=== PATIENT | female | born 1935 | race Two or more races ===

== ENCOUNTER 2017-06-12 10:18 | Inpatient (IN) | payer MEDICARE, OTHER ==
[~2017-06-12] VITALS: Ht 162.6 cm; Wt 68.0 kg
--- NOTE | 2017-06-12 10:27 | Emergency Room Report ---
History of Present Illness General Chief Complaint: Generalized Weakness Source: Patient Present Illness HPI Patient is a 83-year-old female who presented after increased generalized weakness. Patient gradual onset of symptoms. This reports having had decreased appetite. The patient states that she feels weak all over. She reports having some skin lesion to her left foot. Patient states she been off her medications for several weeks. She denies any fever. She denies focal weakness. The patient states that she has not had any recent trauma Allergies: Coded Allergies: No Known Allergies (Unverified , 06/12/17) Patient History Past Medical History: see triage record Reviewed Nursing Documentation: PMH: Agreed, PSxH: Agreed Review of Systems All Other Systems: limited - by poor historian Physical Exam Vital Signs Date Time Temp Pulse Resp B/P (MAP) Pulse Ox O2 Delivery O2 Flow Rate FiO2 06/12/17 10:11 98.2 92 18 134/86 98 Room Air Sp02 EP Interpretation: reviewed, normal General Appearance: normal inspection, well appearing, no apparent distress, alert, Chronically Ill Head: atraumatic ENT: normal ENT inspection, hearing grossly normal, normal voice Neck: normal inspection, full range of motion, supple, no bony tend Respiratory: normal inspection, lungs clear, normal breath sounds, no respiratory distress, no retraction, no wheezing Cardiovascular #1: regular rate, rhythm, no edema Gastrointestinal: normal inspection, normal bowel sounds, non tender, soft, no guarding, no hernia Genitourinary: no CVA tenderness Musculoskeletal: normal inspection, back normal, normal range of motion Neurologic: normal inspection, alert, oriented x3, responsive, teacher learning disabled III-XII nml as tested, speech normal Psychiatric: normal inspection, judgement/insight normal, mood/affect normal Skin: normal inspection, normal color, no rash Medical Decision Making Diagnostic Impression: Primary Impression: Generalized weakness Additional Impression: UTI (urinary tract infection) ER Course Patient presented for generalized weakness. Differential diagnosis included was not limited to anemia, urinary tract infection, electrolyte abnormality, hypothyroidism, myocardial infarction, myasthenia gravis, dehydration, among others. Because of complexity of patient's case laboratory testing and imaging studies were ordered.The patient started on IV fluids as well as IV antibiotic. Dr. Ellyn Lockhart was contacted for inpatient management Labs Test 06/12/17 10:55 06/12/17 11:00 06/12/17 13:55 White Blood Count 6.2 K/UL (4.8-10.8) Red Blood Count 4.56 M/UL (4.20-5.40) Hemoglobin 12.2 G/DL (12.0-16.0) Hematocrit 40.2 % (37.0-47.0) Mean Corpuscular Volume 88 FL (80-99) Mean Corpuscular Hemoglobin 26.8 PG (27.0-31.0) Mean Corpuscular Hemoglobin Concent 30.3 G/DL (32.0-36.0) Red Cell Distribution Width 12.2 % (11.6-14.8) Platelet Count 239 K/UL (150-450) Mean Platelet Volume 6.1 FL (6.5-10.1) Neutrophils (%) (Auto) 59.6 % (45.0-75.0) Lymphocytes (%) (Auto) 25.1 % (20.0-45.0) Monocytes (%) (Auto) 13.9 % (1.0-10.0) Eosinophils (%) (Auto) 0.4 % (0.0-3.0) Basophils (%) (Auto) 0.9 % (0.0-2.0) Prothrombin Time 11.2 SEC (9.30-11.50) Prothromb Time International Ratio 1.1 (0.9-1.1) Activated Partial Thromboplast Time 27 SEC (23-33) Sodium Level 143 MMOL/L (136-145) Potassium Level 4.4 MMOL/L (3.5-5.1) Chloride Level 103 MMOL/L (98-107) Carbon Dioxide Level 31 MMOL/L (21-32) Anion Gap 10 mmol/L (5-15) Blood Urea Nitrogen 15 mg/dL (7-18) Creatinine 0.7 MG/DL (0.55-1.30) Estimat Glomerular Filtration Rate mL/min (>60) Glucose Level 101 MG/DL (74-106) Calcium Level 9.8 MG/DL (8.5-10.1) Phosphorus Level 2.2 MG/DL (2.5-4.9) Magnesium Level 1.3 MG/DL (1.8-2.4) Total Bilirubin 0.7 MG/DL (0.2-1.0) Aspartate Amino Transf (AST/SGOT) 18 U/L (15-37) Alanine Aminotransferase (ALT/SGPT) 17 U/L (12-78) Alkaline Phosphatase 82 U/L (46-116) Total Creatine Kinase 60 U/L (26-308) Creatine Kinase MB 1.9 NG/ML (0.0-3.6) Creatine Kinase MB Relative Index 3.1 Troponin I 0.034 ng/mL (0.000-0.056) Pro-B-Type Natriuretic Peptide 252 pg/mL (0-125) Total Protein 7.7 G/DL (6.4-8.2) Albumin 3.6 G/DL (3.4-5.0) Globulin 4.1 g/dL Albumin/Globulin Ratio 0.9 (1.0-2.7) Urine Color Brown Urine Appearance Slightly cloudy Urine pH 5 (4.5-8.0) Urine Specific [place] 1.020 (1.005-1.035) Urine Protein 3+ (NEGATIVE) Urine Glucose (UA) Negative (NEGATIVE) Urine Ketones 2+ (NEGATIVE) Urine Occult Blood 3+ (NEGATIVE) Urine Nitrite Positive (NEGATIVE) Urine Bilirubin 1+ (NEGATIVE) Urine Ictotest Negative Urine Urobilinogen 4 MG/DL (0.0-1.0) Urine Leukocyte Esterase 3+ (NEGATIVE) Urine RBC 5-10 /HPF (0 - 2) Urine WBC 10-15 /HPF (0 - 2) Urine Squamous Epithelial Cells Few /LPF (NONE/OCC) Urine Bacteria Many /HPF (NONE) Lactic Acid Level 1.10 mmol/L (0.66-2.22) EKG Diagnostic Results Rate: normal - 94 Rhythm: NSR ST Segments: no acute changes Last Vital Signs Date Time Temp Pulse Resp B/P (MAP) Pulse Ox O2 Delivery O2 Flow Rate FiO2 06/12/17 10:11 98.2 92 18 134/86 98 Room Air Status: improved Disposition: HOME, SELF-CARE Condition: Stable Brian Robison Jun 12, 2017 10:27
[2017-06-12 10:30] VITALS: BP 136/76
--- NOTE | 2017-06-12 10:58 | Diagnostic Imaging Report ---
Indication: Dyspnea Comparison: None A single view chest radiograph was obtained. Findings: No definite infiltrate or pulmonary vascular congestion identified. The heart is enlarged. The aorta is mildly enlarged consistent with atherosclerotic vascular disease. The bones are osteopenic. Impression: No acute disease
[2017-06-12 11:16] LABS: APPEARANCE,URINE SLIGHTLY CLOUDY; KETONES,URINE 2+ (NEGATIVE); LEUKOCYTE ESTERASE ,URINE 3+ (NEGATIVE); NITRITE,URINE POSITIVE (NEGATIVE); PH,URINE 5 (4.5-8.0); PROTEIN,URINE 3+ (NEGATIVE); UROBILINOGEN,URINE 4 MG/DL (0.0-1.0)
[2017-06-12 11:16] LABS: BASOPHILS % (AUTO) 0.9 % (0.0-2.0); EOSINOPHILS % (AUTO) 0.4 % (0.0-3.0); LYMPHOCYTES % (AUTO) 25.1 % (20.0-45.0); MEAN CORPUSCULAR HEMOGLOBIN 26.8 PG (27.0-31.0); MEAN CORPUSCULAR HGB CONC 30.3 G/DL (32.0-36.0); MEAN CORPUSCULAR VOLUME 88 FL (80-99); MEAN PLATELET VOLUME 6.1 FL (6.5-10.1); MONOCYTES % (AUTO) 13.9 % (1.0-10.0); NEUTROPHILS % (AUTO) 59.6 % (45.0-75.0); PLATELET COUNT 239 K/UL (150-450); RED BLOOD COUNT 4.56 M/UL (4.20-5.40); RED CELL DISTRIBUTION WIDTH 12.2 % (11.6-14.8); WHITE BLOOD COUNT 6.2 K/UL (4.8-10.8)
[2017-06-12] MEDS ORDERED: UNOBMED (11:22)
[2017-06-12 11:28] LABS: BACTERIA,URINE MANY /HPF; ICTOTEST NEGATIVE; SQUAMOUS EPITHELIAL CELL,UR FEW /LPF (NONE/OCC)
[2017-06-12 11:35] LABS: INR 1.1 (0.9-1.1); PROTHROMBIN TIME 11.2 SEC (9.30-11.50)
[2017-06-12 11:36] LABS: ANION GAP 10 mmol/L (5-15); CALCIUM 9.8 MG/DL (8.5-10.1); CARBON DIOXIDE 31 MMOL/L (21-32); CHLORIDE 103 MMOL/L (98-107); CREATININE 0.7 MG/DL (0.55-1.30); POTASSIUM 4.4 MMOL/L (3.5-5.1); SODIUM 143 MMOL/L (136-145)
[2017-06-12 11:48] LABS: REFLEX LACTIC ACID YES OR NO YES
[2017-06-12] MEDS ORDERED: cefTRIAXone 1 GM in NS 55 ML IVPB ONE (12:00)
[2017-06-12 12:12] LABS: ALANINE AMINOTRANSFERASE 17 U/L (12-78); ALBUMIN/GLOBULIN RATIO 0.9 (1.0-2.7); ASPARTATE AMINO TRANSFERASE 18 U/L (15-37); CKMB 1.9 NG/ML (0.0-3.6); MAGNESIUM 1.3 MG/DL (1.8-2.4); PHOSPHORUS 2.2 MG/DL (2.5-4.9); TOTAL PROTEIN 7.7 G/DL (6.4-8.2)
[2017-06-12 12:30] VITALS: BP 138/73
[2017-06-12 16:00] VITALS: BP 157/79
--- NOTE | 2017-06-12 17:03 | General Progress Note ---
Assessment/Plan Assessment/Plan GI CONSULT Dictated Patient a poor historian. C/o (R) flank pain Will check CT abd/pelvis Thank you Lei Thomas MD Subjective Allergies: Coded Allergies: No Known Allergies (Unverified , 06/12/17) Objective Last 24 Hour Vital Signs Date Time Temp Pulse Resp B/P (MAP) Pulse Ox O2 Delivery O2 Flow Rate FiO2 06/12/17 16:00 98.2 99 20 157/79 95 Room Air 06/12/17 16:00 87 06/12/17 12:30 88 26 138/73 92 Room Air 06/12/17 10:30 98.1 100 10 136/76 95 Room Air 06/12/17 10:11 98.2 92 18 134/86 98 Room Air Intake and Output 06/12/17 06/13/17 19:00 07:00 Intake Total 0 ml Balance 0 ml Intake Oral 0 ml # Voids 1 Laboratory Tests 06/12/17 10:55: White Blood Count 6.2, Red Blood Count 4.56, Hemoglobin 12.2, Hematocrit 40.2, Mean Corpuscular Volume 88, Mean Corpuscular Hemoglobin 26.8L, Mean Corpuscular Hemoglobin Concent 30.3L, Red Cell Distribution Width 12.2, Platelet Count 239, Mean Platelet Volume 6.1L, Neutrophils (%) (Auto) 59.6, Lymphocytes (%) (Auto) 25.1, Monocytes (%) (Auto) 13.9H, Eosinophils (%) (Auto) 0.4, Basophils (%) ( Auto) 0.9, Prothrombin Time 11.2, Prothromb Time International Ratio 1.1, Activated Partial Thromboplast Time 27, Sodium Level 143, Potassium Level 4.4, Chloride Level 103, Carbon Dioxide Level 31, Anion Gap 10, Blood Urea Nitrogen 15, Creatinine 0.7, Estimat Glomerular Filtration Rate , Glucose Level 101, Lactic Acid Level 2.70H, Calcium Level 9.8, Phosphorus Level 2.2L, Magnesium Level 1.3L, Total Bilirubin 0.7, Aspartate Amino Transf (AST/SGOT) 18, Alanine Aminotransferase (ALT/SGPT) 17, Alkaline Phosphatase 82, Total Creatine Kinase 60, Creatine Kinase MB 1.9, Creatine Kinase MB Relative Index 3.1, Troponin I 0.034, Pro-B-Type Natriuretic Peptide 252H, Total Protein 7.7, Albumin 3.6, Globulin 4.1, Albumin/Globulin Ratio 0.9L 06/12/17 11:00: Urine Color Brown, Urine Appearance Slightly cloudy, Urine pH 5, Urine Specific [place] 1.020, Urine Protein 3+H, Urine Glucose (UA) Negative, Urine Ketones 2+H , Urine Occult Blood 3+H, Urine Nitrite PositiveH, Urine Bilirubin 1+H, Urine Ictotest Negative, Urine Urobilinogen 4H, Urine Leukocyte Esterase 3+H, Urine RBC 5-10H, Urine WBC 10-15H, Urine Squamous Epithelial Cells Few, Urine Bacteria ManyH 06/12/17 13:55: Lactic Acid Level 1.10 Height (Feet): 5 Height (Inches): 4.00 Weight (Pounds): 150 JAMES THOMAS Jun 12, 2017 17:03
[2017-06-12] MEDS ORDERED: Potassium Phosphate 20 MM in NS 275 ML IV ONE (18:30)
[2017-06-12] MEDS: Albuterol/Ipratropium 3ml neb HHN SCH (19:00)
[2017-06-12 20:00] VITALS: BP 120/76
[2017-06-13] VITALS (7 sets, daily range): BP systolic 110–137; BP diastolic 56–91
[2017-06-13] MEDS: Albuterol/Ipratropium 3ml neb HHN SCH ×4 (01:00→19:00)
--- NOTE | 2017-06-13 01:30 | Consultation ---
DATE OF CONSULTATION: 06/12/2017 GASTROENTEROLOGY CONSULTATION CONSULTING PHYSICIAN: Garry Thomas M.D. REFERRING PHYSICIAN: Ellyn Mcleod M.D. CHIEF COMPLAINT: I was asked to see this patient by Dr. Ellyn Mcleod for evaluation of abdominal issues. HISTORY OF PRESENT ILLNESS: The patient is an 82-year-old woman, who is somewhat confused and a poor historian who was brought into the hospital due to vague complaints. She complained to the emergency room that she has some vague general weakness. To me, she complains of right-sided flank pain, but she cannot tell me how long it has been there. She cannot tell if she has any nausea vomiting, diarrhea, constipation, or any other previous history. She has no significant medical records available for review. PAST MEDICAL HISTORY: Otherwise unavailable. FAMILY HISTORY: Unavailable. SOCIAL HISTORY: The patient cannot offer answers. REVIEW OF SYSTEMS: Unobtainable. PHYSICAL EXAMINATION: GENERAL: Confused, woman, seen in her room. HEENT: Normocephalic and atraumatic. The mucous membranes were dry. NECK: Supple. CHEST: Clear to auscultation. CARDIOVASCULAR: Irregular rate. ABDOMEN: Soft and seemingly nontender, although the patient does complain of right flank pain. She has a midline lower abdominal scar, which she cannot remember what it is for. EXTREMITIES: Revealed no edema. LABORATORY DATA: Noted. ASSESSMENT: This patient presents with a vague right-sided flank pain of unclear etiology. Differential diagnosis would include nephrolithiasis versus appendicitis versus colitis or cholecystitis. The patient should undergo a CT scan of the abdomen and pelvis and initial screening evaluation. I will also check her stools for occult blood, although her hematocrit is normal. Amylase can also be added to morning laboratories. She had a mild lactate elevation, but this has been normal in subsequent measurements. The patient can be given clear liquids if tolerated and further recommendation will be made based on the results of initial evaluation. RECOMMENDATIONS: Per above discussion and per orders written in the chart. Thank you for asking me to participate in the care of this patient. Garry Thomas M.D. DR: RIO JOB#: [id number] CC:
[2017-06-13 05:03] LABS: BASOPHILS % (AUTO) 0.5 % (0.0-2.0); EOSINOPHILS % (AUTO) 0.4 % (0.0-3.0); LYMPHOCYTES % (AUTO) 21.5 % (20.0-45.0); MEAN CORPUSCULAR HEMOGLOBIN 29.3 PG (27.0-31.0); MEAN CORPUSCULAR VOLUME 86 FL (80-99); MEAN PLATELET VOLUME 5.8 FL (6.5-10.1); MONOCYTES % (AUTO) 15.1 % (1.0-10.0); NEUTROPHILS % (AUTO) 62.5 % (45.0-75.0); PLATELET COUNT 243 K/UL (150-450); RED BLOOD COUNT 4.29 M/UL (4.20-5.40); RED CELL DISTRIBUTION WIDTH 11.9 % (11.6-14.8); WHITE BLOOD COUNT 6.2 K/UL (4.8-10.8)
[2017-06-13 05:29] LABS: MAGNESIUM 1.3 MG/DL (1.8-2.4); PHOSPHORUS 3.9 MG/DL (2.5-4.9)
[2017-06-13 05:36] LABS: ALANINE AMINOTRANSFERASE 14 U/L (12-78); ALBUMIN/GLOBULIN RATIO 0.7 (1.0-2.7); ANION GAP 10 mmol/L (5-15); ASPARTATE AMINO TRANSFERASE 16 U/L (15-37); CALCIUM 9.1 MG/DL (8.5-10.1); CARBON DIOXIDE 29 MMOL/L (21-32); CHLORIDE 102 MMOL/L (98-107); CREATININE 0.7 MG/DL (0.55-1.30); LIPASE 55 U/L (73-393); POTASSIUM 3.6 MMOL/L (3.5-5.1); SODIUM 141 MMOL/L (136-145); TOTAL PROTEIN 7.1 G/DL (6.4-8.2)
--- NOTE | 2017-06-13 09:25 | General Progress Note ---
Assessment/Plan Assessment/Plan Assessment - (R) flank pain - UTI - improved symptoms/eating better Recommendations - Hold off on CT for now, since better - abx per ID - image abd if symptoms return Subjective Allergies: Coded Allergies: No Known Allergies (Unverified , 06/12/17) Subjective Feels better abd pain much improved eating no vomiting Objective Last 24 Hour Vital Signs Date Time Temp Pulse Resp B/P (MAP) Pulse Ox O2 Delivery O2 Flow Rate FiO2 06/13/17 08:00 94 06/13/17 04:00 98.9 86 18 123/65 95 Room Air 06/13/17 04:00 86 06/13/17 01:29 Room Air 06/13/17 01:28 82 18 95 Room Air 06/13/17 00:00 92 06/13/17 00:00 98.6 95 20 125/91 92 Room Air 06/12/17 20:00 98.8 102 20 120/76 92 Room Air 06/12/17 20:00 104 06/12/17 18:55 98.2 06/12/17 16:00 98.2 99 20 157/79 95 Room Air 06/12/17 16:00 87 06/12/17 12:30 88 26 138/73 92 Room Air 06/12/17 10:30 98.1 100 10 136/76 95 Room Air 06/12/17 10:11 98.2 92 18 134/86 98 Room Air Laboratory Tests 06/12/17 10:55: White Blood Count 6.2, Red Blood Count 4.56, Hemoglobin 12.2, Hematocrit 40.2, Mean Corpuscular Volume 88, Mean Corpuscular Hemoglobin 26.8L, Mean Corpuscular Hemoglobin Concent 30.3L, Red Cell Distribution Width 12.2, Platelet Count 239, Mean Platelet Volume 6.1L, Neutrophils (%) (Auto) 59.6, Lymphocytes (%) (Auto) 25.1, Monocytes (%) (Auto) 13.9H, Eosinophils (%) (Auto) 0.4, Basophils (%) ( Auto) 0.9, Prothrombin Time 11.2, Prothromb Time International Ratio 1.1, Activated Partial Thromboplast Time 27, Sodium Level 143, Potassium Level 4.4, Chloride Level 103, Carbon Dioxide Level 31, Anion Gap 10, Blood Urea Nitrogen 15, Creatinine 0.7, Estimat Glomerular Filtration Rate , Glucose Level 101, Lactic Acid Level 2.70H, Calcium Level 9.8, Phosphorus Level 2.2L, Magnesium Level 1.3L, Total Bilirubin 0.7, Aspartate Amino Transf (AST/SGOT) 18, Alanine Aminotransferase (ALT/SGPT) 17, Alkaline Phosphatase 82, Total Creatine Kinase 60, Creatine Kinase MB 1.9, Creatine Kinase MB Relative Index 3.1, Troponin I 0.034, Pro-B-Type Natriuretic Peptide 252H, Total Protein 7.7, Albumin 3.6, Globulin 4.1, Albumin/Globulin Ratio 0.9L 06/12/17 11:00: Urine Color Brown, Urine Appearance Slightly cloudy, Urine pH 5, Urine Specific [place] 1.020, Urine Protein 3+H, Urine Glucose (UA) Negative, Urine Ketones 2+H , Urine Occult Blood 3+H, Urine Nitrite PositiveH, Urine Bilirubin 1+H, Urine Ictotest Negative, Urine Urobilinogen 4H, Urine Leukocyte Esterase 3+H, Urine RBC 5-10H, Urine WBC 10-15H, Urine Squamous Epithelial Cells Few, Urine Bacteria ManyH 06/12/17 13:55: Lactic Acid Level 1.10 06/13/17 03:25: White Blood Count 6.2, Red Blood Count 4.29, Hemoglobin 12.5, Hematocrit 36.9L, Mean Corpuscular Volume 86, Mean Corpuscular Hemoglobin 29.3, Mean Corpuscular Hemoglobin Concent 34.0, Red Cell Distribution Width 11.9, Platelet Count 243, Mean Platelet Volume 5.8L, Neutrophils (%) (Auto) 62.5, Lymphocytes (%) (Auto) 21.5, Monocytes (%) (Auto) 15.1H, Eosinophils (%) (Auto) 0.4, Basophils (%) ( Auto) 0.5, Sodium Level 141, Potassium Level 3.6, Chloride Level 102, Carbon Dioxide Level 29, Anion Gap 10, Blood Urea Nitrogen 8, Creatinine 0.7, Estimat Glomerular Filtration Rate , Glucose Level 99, Calcium Level 9.1, Phosphorus Level 3.9, Magnesium Level 1.3L, Total Bilirubin 0.7, Aspartate Amino Transf ( AST/SGOT) 16, Alanine Aminotransferase (ALT/SGPT) 14, Alkaline Phosphatase 70, Pro-B-Type Natriuretic Peptide 1213H, Total Protein 7.1, Albumin 3.0L, Globulin 4.1, Albumin/Globulin Ratio 0.7L, Lipase 55L Height (Feet): 5 Height (Inches): 4.00 Weight (Pounds): 150 Objective JAMES ELLIOTT Jun 13, 2017 09:25
[2017-06-13] MEDS: cefTRIAXone 1 GM in D5W 55 ML IVPB SCH (11:36)
--- NOTE | 2017-06-13 16:34 | Consultation ---
History of Present Illness General Date patient seen: Jun 12, 2017 Chief Complaint: Generalized Weakness Present Illness HPI 82-year-old woman, who is somewhat confused and a poor historian who was brought into the hospital due to weakness. the pt was alert and oriented however was anxious and depressed. low energy Allergies: Coded Allergies: No Known Allergies (Unverified , 06/12/17) Medication History Miscellaneous Medications Unable to Obtain Medications (Unable To Obtain Meds), (Reported) Patient History History Provided By: Patient, Medical Record, PMD Healthcare decision maker Resuscitation status Full Code Advanced Directive on File Past Medical/Surgical History Past Medical/Surgical History: (1) Shortness of breath (2) Generalized weakness (3) UTI (urinary tract infection) Review of Systems Psychiatric: Reports: see HPI, prior hx, anxiety Physical Exam General Appearance: alert, moderate distress Neurologic: alert, oriented x 3, responsive Last 24 Hour Vital Signs Date Time Temp Pulse Resp B/P (MAP) Pulse Ox O2 Delivery O2 Flow Rate FiO2 06/13/17 13:21 Room Air 06/13/17 13:21 Room Air 06/13/17 12:00 99.0 86 20 119/59 93 Room Air 06/13/17 12:00 84 06/13/17 08:00 94 06/13/17 08:00 97.9 94 19 110/59 95 Room Air 06/13/17 07:45 94 18 Room Air 06/13/17 07:45 Room Air 06/13/17 07:45 94 18 96 Room Air 06/13/17 04:00 98.9 86 18 123/65 95 Room Air 06/13/17 04:00 86 06/13/17 01:29 Room Air 06/13/17 01:28 82 18 95 Room Air 06/13/17 00:00 92 06/13/17 00:00 98.6 95 20 125/91 92 Room Air 06/12/17 20:00 98.8 102 20 120/76 92 Room Air 06/12/17 20:00 104 06/12/17 18:55 98.2 Intake and Output 06/13/17 06/14/17 19:00 07:00 Intake Total 155 ml Balance 155 ml IV Total 155 ml Laboratory Tests Test 06/13/17 03:25 White Blood Count 6.2 K/UL (4.8-10.8) Red Blood Count 4.29 M/UL (4.20-5.40) Hemoglobin 12.5 G/DL (12.0-16.0) Hematocrit 36.9 % (37.0-47.0) L Mean Corpuscular Volume 86 FL (80-99) Mean Corpuscular Hemoglobin 29.3 PG (27.0-31.0) Mean Corpuscular Hemoglobin Concent 34.0 G/DL (32.0-36.0) Red Cell Distribution Width 11.9 % (11.6-14.8) Platelet Count 243 K/UL (150-450) Mean Platelet Volume 5.8 FL (6.5-10.1) L Neutrophils (%) (Auto) 62.5 % (45.0-75.0) Lymphocytes (%) (Auto) 21.5 % (20.0-45.0) Monocytes (%) (Auto) 15.1 % (1.0-10.0) H Eosinophils (%) (Auto) 0.4 % (0.0-3.0) Basophils (%) (Auto) 0.5 % (0.0-2.0) Sodium Level 141 MMOL/L (136-145) Potassium Level 3.6 MMOL/L (3.5-5.1) Chloride Level 102 MMOL/L (98-107) Carbon Dioxide Level 29 MMOL/L (21-32) Anion Gap 10 mmol/L (5-15) Blood Urea Nitrogen 8 mg/dL (7-18) Creatinine 0.7 MG/DL (0.55-1.30) Estimat Glomerular Filtration Rate mL/min (>60) Glucose Level 99 MG/DL (74-106) Calcium Level 9.1 MG/DL (8.5-10.1) Phosphorus Level 3.9 MG/DL (2.5-4.9) Magnesium Level 1.3 MG/DL (1.8-2.4) L Total Bilirubin 0.7 MG/DL (0.2-1.0) Aspartate Amino Transf (AST/SGOT) 16 U/L (15-37) Alanine Aminotransferase (ALT/SGPT) 14 U/L (12-78) Alkaline Phosphatase 70 U/L (46-116) Pro-B-Type Natriuretic Peptide 1213 pg/mL (0-125) H Total Protein 7.1 G/DL (6.4-8.2) Albumin 3.0 G/DL (3.4-5.0) L Globulin 4.1 g/dL Albumin/Globulin Ratio 0.7 (1.0-2.7) L Lipase 55 U/L (73-393) L Height (Feet): 5 Height (Inches): 4.00 Weight (Pounds): 150 Medications Current Medications Medications (Trade) Dose Ordered Sig/Earl Route PRN Reason Start Time Stop Time Status Last Admin Dose Admin Acetaminophen (Tylenol) 650 mg Q4H PRN ORAL For Pain 06/12/17 16:45 07/12/17 16:44 06/12/17 17:56 Acetaminophen (Tylenol) 650 mg Q4H PRN ORAL Temp > 100.5F 06/12/17 16:45 07/12/17 16:44 Albuterol/ Ipratropium (Albuterol/ Ipratropium) 3 ml Q6HRT HHN 06/12/17 19:00 06/17/17 18:59 Ceftriaxone Sodium 1 gm/ Dextrose 55 ml @ 110 mls/hr Q24H IVPB 06/13/17 11:00 06/20/17 10:59 06/13/17 11:36 Assessment/Plan Status: stable, progressing Assessment/Plan anxiety deperssion remeron 7.5 qhs Omaira Pennington M.D. Jun 13, 2017 16:34
--- NOTE | 2017-06-13 16:36 | General Progress Note ---
Assessment/Plan Status: unchanged Assessment/Plan anxiety mdd remron 7.5 qhs Subjective Date patient seen: Jun 13, 2017 Neurologic/Psychiatric: Reports: anxiety, depressed, emotional problems Allergies: Coded Allergies: No Known Allergies (Unverified , 06/12/17) Objective Last 24 Hour Vital Signs Date Time Temp Pulse Resp B/P (MAP) Pulse Ox O2 Delivery O2 Flow Rate FiO2 06/13/17 13:21 Room Air 21 06/13/17 13:21 Room Air 06/13/17 12:00 99.0 86 20 119/59 93 Room Air 06/13/17 12:00 84 06/13/17 08:00 94 06/13/17 08:00 97.9 94 19 110/59 95 Room Air 06/13/17 07:45 94 18 Room Air 06/13/17 07:45 Room Air 06/13/17 07:45 94 18 96 Room Air 06/13/17 04:00 98.9 86 18 123/65 95 Room Air 06/13/17 04:00 86 06/13/17 01:29 Room Air 06/13/17 01:28 82 18 95 Room Air 06/13/17 00:00 92 06/13/17 00:00 98.6 95 20 125/91 92 Room Air 06/12/17 20:00 98.8 102 20 120/76 92 Room Air 06/12/17 20:00 104 06/12/17 18:55 98.2 Intake and Output 06/13/17 06/14/17 19:00 07:00 Intake Total 155 ml Balance 155 ml IV Total 155 ml Laboratory Tests 06/13/17 03:25: White Blood Count 6.2, Red Blood Count 4.29, Hemoglobin 12.5, Hematocrit 36.9L, Mean Corpuscular Volume 86, Mean Corpuscular Hemoglobin 29.3, Mean Corpuscular Hemoglobin Concent 34.0, Red Cell Distribution Width 11.9, Platelet Count 243, Mean Platelet Volume 5.8L, Neutrophils (%) (Auto) 62.5, Lymphocytes (%) (Auto) 21.5, Monocytes (%) (Auto) 15.1H, Eosinophils (%) (Auto) 0.4, Basophils (%) ( Auto) 0.5, Sodium Level 141, Potassium Level 3.6, Chloride Level 102, Carbon Dioxide Level 29, Anion Gap 10, Blood Urea Nitrogen 8, Creatinine 0.7, Estimat Glomerular Filtration Rate , Glucose Level 99, Calcium Level 9.1, Phosphorus Level 3.9, Magnesium Level 1.3L, Total Bilirubin 0.7, Aspartate Amino Transf ( AST/SGOT) 16, Alanine Aminotransferase (ALT/SGPT) 14, Alkaline Phosphatase 70, Pro-B-Type Natriuretic Peptide 1213H, Total Protein 7.1, Albumin 3.0L, Globulin 4.1, Albumin/Globulin Ratio 0.7L, Lipase 55L Height (Feet): 5 Height (Inches): 4.00 Weight (Pounds): 150 General Appearance: WD/WN, no apparent distress, alert Neurologic: alert, oriented x 3, responsive, depressed affect Omaira Pennington M.D. Jun 13, 2017 16:36
--- NOTE | 2017-06-13 20:31 | Consultation ---
DATE OF CONSULTATION: 06/13/2017 INFECTIOUS DISEASES CONSULTATION CONSULTING PHYSICIAN: Elmer Stone M.D. This consultation is for coverage of Dr. Marmolejo. PRIMARY ATTENDING PHYSICIAN: Ellyn Mcleod M.D. REASON FOR CONSULTATION: UTI. HISTORY OF PRESENT ILLNESS: This 82-year-old female admitted yesterday because of weakness that was gradual onset, decreased appetite. She had right-sided upper abdominal pain. She has pyuria, lactic acidosis, and tachycardia. PAST MEDICAL HISTORY: The patient is homeless. She has decreased hearing. She had hysterectomy before. She had an admission to [facility] before. She states that at that time, she could not eat. MEDICATIONS: Getting magnesium sulfate, DuoNeb inhaler, ceftriaxone, and Tylenol. ALLERGIES: No known drug allergies. SOCIAL HISTORY: Homeless. Denies alcohol, drug abuse, or smoking. REVIEW OF SYSTEMS: GENERAL: The patient is a poor historian. Denies any fever or chills. No pain. No nausea. No vomiting. No dysuria. Walking with minimal assistance. PHYSICAL EXAMINATION: GENERAL APPEARANCE: No acute distress. VITAL SIGNS: Temperature 98.9 degrees, pulse 86, and blood pressure 123/65. HEAD AND NECK: No oral lesion. HEART: Regular. Normal rate. LUNGS: Clear. ABDOMEN: Soft and nontender. EXTREMITIES: She has bilateral sequential compression device. No edema. NEUROLOGIC: Awake, alert, verbal. She has decreased hearing. LABORATORY AND DIAGNOSTIC DATA: Sodium 141, potassium 3.6, chloride 102, bicarbonate 29, BUN 8, creatinine 0.7, and glucose 99. Lipase is 55. BNP 1213. WBC 6.2, hemoglobin 12.5, hematocrit 36.9, and platelets are 243. Albumin is 3. Chest x-ray was negative. Urine growing gram-negative rods. UA showed WBC of 10 to 15, leukocyte esterase 3+, and nitrite positive. IMPRESSION: Pyuria, likely urinary tract infection. The patient has some systemic symptoms like weakness, decreased appetite, and right flank pain. She seems to have some hearing loss. RECOMMENDATIONS: We will continue with ceftriaxone. We will follow up the cultures. The patient will have a CT scan of the abdomen and pelvis ordered by GI specialist for abdominal pain. At the end of my exam, I thank Dr. Mcleod for involving me in the care of this patient. Elmer Stone M.D. DR: Roma JOB#: [id number] CC:
[2017-06-14] VITALS: BP 125/72
[2017-06-14] MEDS: Albuterol/Ipratropium 3ml neb HHN SCH ×4 (02:10→19:45)
[2017-06-14 04:00] VITALS: BP 123/77
[2017-06-14 08:36] VITALS: BP 122/74
--- NOTE | 2017-06-14 09:02 | Infectious Diseases Prog Note ---
Assessment/Plan Assessment/Plan A: E. coli UTI Fever Abdominal pain Homeless Depression P: Continue Rocephin Subjective ROS Limited/Unobtainable: No Constitutional: Reports: fever, other - Lwrp=806.8 Cardiovascular: Reports: no symptoms Gastrointestinal/Abdominal: Reports: other - abdominal pain more in right side Psychiatric: Reports: other - refuses oral medications Allergies: Coded Allergies: No Known Allergies (Unverified , 06/12/17) Objective Vital Signs Last 24 Hour Vital Signs Date Time Temp Pulse Resp B/P (MAP) Pulse Ox O2 Delivery O2 Flow Rate FiO2 06/14/17 08:36 97.9 91 18 122/74 95 Room Air 06/14/17 07:34 Room Air 06/14/17 07:34 Room Air 06/14/17 04:00 99.9 93 20 123/77 95 Room Air 06/14/17 04:00 87 06/14/17 02:10 Room Air 06/14/17 02:10 Room Air 06/14/17 00:00 98.4 93 20 125/72 94 Room Air 06/14/17 00:00 90 06/13/17 21:00 100.8 96 24 137/65 95 Room Air 06/13/17 20:00 88 06/13/17 20:00 100.5 96 19 121/65 98 Room Air 06/13/17 19:11 Room Air 06/13/17 19:07 100 18 92 Room Air 06/13/17 16:00 98.2 98 19 116/56 96 Room Air 06/13/17 16:00 93 06/13/17 13:21 Room Air 06/13/17 13:21 Room Air 06/13/17 12:00 99.0 86 20 119/59 93 Room Air 06/13/17 12:00 84 Height (Feet): 5 Height (Inches): 4.00 Weight (Pounds): 150 General Appearance: no acute distress HEENT: mucous membranes moist Respiratory/Chest: lungs clear Cardiovascular: normal rate Abdomen: soft, non tender Extremities: no edema Neurologic/Psychiatric: alert, responsive Microbiology Date/Time Source Procedure Growth Status 06/12/17 10:55 Blood Blood Culture - Preliminary NO GROWTH AFTER 24 HOURS Resulted 06/12/17 10:55 Blood Blood Culture - Preliminary NO GROWTH AFTER 24 HOURS Resulted 06/12/17 13:15 Nasal Nares MRSA Culture - Final NO METHICILLIN RESISTANT STAPH AUREUS... Complete 06/12/17 11:00 Urine,Clean Catch Urine Culture - Final Escherichia Coli Complete 06/12/17 13:15 Rectum VRE Culture - Final NO VANCOMYCIN RESISTANT ENTEROCOCCUS ... Complete Current Medications Medications (Trade) Dose Ordered Sig/Earl Route PRN Reason Start Time Stop Time Status Last Admin Dose Admin Acetaminophen (Tylenol) 650 mg Q4H PRN ORAL For Pain 06/12/17 16:45 07/12/17 16:44 06/12/17 17:56 Acetaminophen (Tylenol) 650 mg Q4H PRN ORAL Temp > 100.5F 06/12/17 16:45 07/12/17 16:44 Albuterol/ Ipratropium (Albuterol/ Ipratropium) 3 ml Q6HRT HHN 06/12/17 19:00 06/17/17 18:59 Ceftriaxone Sodium 1 gm/ Dextrose 55 ml @ 110 mls/hr Q24H IVPB 06/13/17 11:00 06/20/17 10:59 06/13/17 11:36 Mirtazapine (Remeron) 7.5 mg BEDTIME ORAL 06/13/17 21:00 07/13/17 20:59 SIS ALBA Jun 14, 2017 09:02
[2017-06-14] MEDS: cefTRIAXone 1 GM in D5W 55 ML IVPB SCH (11:43)
[2017-06-14 11:46] VITALS: BP 137/74
--- NOTE | 2017-06-14 13:07 | General Progress Note ---
Assessment/Plan Problem List: (1) Shortness of breath ICD Codes: R06.02 - Shortness of breath SNOMED: 359658020 (2) Generalized weakness ICD Codes: R53.1 - Weakness SNOMED: 98347604 (3) UTI (urinary tract infection) ICD Codes: N39.0 - UTI (urinary tract infection) SNOMED: 67432348 Status: progressing Assessment/Plan afebrille unable to care for herself needs snf placement uti reviewed chart and labs Subjective ROS Limited/Unobtainable: Yes Allergies: Coded Allergies: No Known Allergies (Unverified , 06/12/17) Objective Last 24 Hour Vital Signs Date Time Temp Pulse Resp B/P (MAP) Pulse Ox O2 Delivery O2 Flow Rate FiO2 06/14/17 12:42 Room Air 06/14/17 12:42 Room Air 06/14/17 11:46 99.3 88 18 137/74 95 Room Air 06/14/17 08:36 97.9 91 18 122/74 95 Room Air 06/14/17 07:34 Room Air 06/14/17 07:34 Room Air 06/14/17 04:00 99.9 93 20 123/77 95 Room Air 06/14/17 04:00 87 06/14/17 02:10 Room Air 06/14/17 02:10 Room Air 06/14/17 00:00 98.4 93 20 125/72 94 Room Air 06/14/17 00:00 90 06/13/17 21:00 100.8 96 24 137/65 95 Room Air 06/13/17 20:00 88 06/13/17 20:00 100.5 96 19 121/65 98 Room Air 06/13/17 19:11 Room Air 06/13/17 19:07 100 18 92 Room Air 06/13/17 16:00 98.2 98 19 116/56 96 Room Air 06/13/17 16:00 93 06/13/17 13:21 Room Air 06/13/17 13:21 Room Air Intake and Output 06/14/17 06/15/17 19:00 07:00 Intake Total 120 ml Output Total 400 ml Balance -280 ml Intake Oral 120 ml Output Urine Total 400 ml Height (Feet): 5 Height (Inches): 4.00 Weight (Pounds): 150 Ellyn Mcleod MD Jun 14, 2017 13:07
--- NOTE | 2017-06-14 13:36 | General Progress Note ---
Assessment/Plan Assessment/Plan Assessment - (R)LQ and (R) flank pain - UTI - improved symptoms/eating better Recommendations - check CT abd / pelvis - abx per ID - po as tolerated - agree with placement Subjective Allergies: Coded Allergies: No Known Allergies (Unverified , 06/12/17) Subjective Feels better still with RLQ abd pain eating no vomiting Objective Last 24 Hour Vital Signs Date Time Temp Pulse Resp B/P (MAP) Pulse Ox O2 Delivery O2 Flow Rate FiO2 06/14/17 12:42 Room Air 06/14/17 12:42 Room Air 06/14/17 11:46 99.3 88 18 137/74 95 Room Air 06/14/17 08:36 97.9 91 18 122/74 95 Room Air 06/14/17 07:34 Room Air 06/14/17 07:34 Room Air 06/14/17 04:00 99.9 93 20 123/77 95 Room Air 06/14/17 04:00 87 06/14/17 02:10 Room Air 06/14/17 02:10 Room Air 06/14/17 00:00 98.4 93 20 125/72 94 Room Air 06/14/17 00:00 90 06/13/17 21:00 100.8 96 24 137/65 95 Room Air 06/13/17 20:00 88 06/13/17 20:00 100.5 96 19 121/65 98 Room Air 06/13/17 19:11 Room Air 06/13/17 19:07 100 18 92 Room Air 21 06/13/17 16:00 98.2 98 19 116/56 96 Room Air 06/13/17 16:00 93 Intake and Output 06/14/17 06/15/17 19:00 07:00 Intake Total 240 ml Output Total 400 ml Balance -160 ml Intake Oral 240 ml Output Urine Total 400 ml Height (Feet): 5 Height (Inches): 4.00 Weight (Pounds): 150 Objective JAMES ELLIOTT Jun 14, 2017 13:36
[2017-06-14] MEDS ORDERED: Sorbitol Solution UD 30ml ORAL ONE (14:00)
[2017-06-14 16:01] VITALS: BP 137/65
[2017-06-14] MEDS ORDERED: Sorbitol Solution UD 30ml ORAL PRN (18:00)
[2017-06-14 20:00] VITALS: BP 125/75
[2017-06-15] VITALS: BP 127/85
[2017-06-15] MEDS: Albuterol/Ipratropium 3ml neb HHN SCH ×4 (01:57→19:51)
[2017-06-15 04:00] VITALS: BP 135/74
--- NOTE | 2017-06-15 07:37 | General Progress Note ---
Assessment/Plan Assessment/Plan Assessment - (R)LQ and (R) flank pain - improved - UTI - eating better Recommendations - check CT abd / pelvis - abx per ID - po as tolerated - agree with placement Subjective Allergies: Coded Allergies: No Known Allergies (Unverified , 06/12/17) Subjective Feels better RLQ pain better eating no vomiting Objective Last 24 Hour Vital Signs Date Time Temp Pulse Resp B/P (MAP) Pulse Ox O2 Delivery O2 Flow Rate FiO2 06/15/17 04:00 99.0 88 19 135/74 100 Room Air 06/15/17 04:00 85 06/15/17 01:57 Room Air 06/15/17 01:57 Room Air 06/15/17 00:00 99.1 83 18 127/85 96 Room Air 06/15/17 00:00 87 06/14/17 21:51 101.5 06/14/17 20:00 102.0 97 18 125/75 96 Room Air 06/14/17 20:00 92 06/14/17 19:45 Room Air 06/14/17 19:45 Room Air 06/14/17 16:01 100.4 98 18 137/65 95 Room Air 06/14/17 16:00 93 06/14/17 12:42 Room Air 06/14/17 12:42 Room Air 06/14/17 12:00 92 06/14/17 11:46 99.3 88 18 137/74 95 Room Air 06/14/17 08:36 97.9 91 18 122/74 95 Room Air 06/14/17 08:00 90 Height (Feet): 5 Height (Inches): 4.00 Weight (Pounds): 150 Objective JAMES ELLIOTT Jun 15, 2017 07:37
[2017-06-15 08:09] VITALS: BP 133/79
[2017-06-15] MEDS ORDERED: NS 275ml ONE (10:40)
[2017-06-15] MEDS ORDERED: Tubing IV Secondary IV ONE (10:40)
--- NOTE | 2017-06-15 10:46 | Infectious Diseases Prog Note ---
Assessment/Plan Assessment/Plan A: E. coli UTI Fever Abdominal pain Homeless Depression P: Continue Rocephin will f/u CT scan of abdomen & pelvis Subjective ROS Limited/Unobtainable: No Constitutional: Reports: no symptoms Respiratory: Reports: no symptoms Cardiovascular: Reports: no symptoms Genitourinary: Reports: no symptoms Musculoskeletal: Reports: other - neck pain Allergies: Coded Allergies: No Known Allergies (Unverified , 06/12/17) Objective Vital Signs Last 24 Hour Vital Signs Date Time Temp Pulse Resp B/P (MAP) Pulse Ox O2 Delivery O2 Flow Rate FiO2 06/15/17 08:09 98.7 89 18 133/79 96 Room Air 06/15/17 08:01 84 16 100 Room Air 06/15/17 08:00 90 06/15/17 08:00 84 16 98 Room Air 06/15/17 04:00 99.0 88 19 135/74 100 Room Air 06/15/17 04:00 85 06/15/17 01:57 Room Air 06/15/17 01:57 Room Air 06/15/17 00:00 99.1 83 18 127/85 96 Room Air 06/15/17 00:00 87 06/14/17 21:51 101.5 06/14/17 20:00 102.0 97 18 125/75 96 Room Air 06/14/17 20:00 92 06/14/17 19:45 Room Air 06/14/17 19:45 Room Air 06/14/17 16:01 100.4 98 18 137/65 95 Room Air 06/14/17 16:00 93 06/14/17 12:42 Room Air 06/14/17 12:42 Room Air 06/14/17 12:00 92 06/14/17 11:46 99.3 88 18 137/74 95 Room Air Height (Feet): 5 Height (Inches): 4.00 Weight (Pounds): 150 General Appearance: no acute distress HEENT: mucous membranes moist Respiratory/Chest: lungs clear Cardiovascular: normal rate Extremities: no edema Neurologic/Psychiatric: alert, responsive Microbiology Date/Time Source Procedure Growth Status 06/12/17 10:55 Blood Blood Culture - Preliminary NO GROWTH AFTER 48 HOURS Resulted 06/12/17 10:55 Blood Blood Culture - Preliminary NO GROWTH AFTER 48 HOURS Resulted 06/12/17 13:15 Nasal Nares MRSA Culture - Final NO METHICILLIN RESISTANT STAPH AUREUS... Complete 06/12/17 11:00 Urine,Clean Catch Urine Culture - Final Escherichia Coli Complete 06/12/17 13:15 Rectum VRE Culture - Final NO VANCOMYCIN RESISTANT ENTEROCOCCUS ... Complete Laboratory Tests Test 06/15/17 10:25 White Blood Count Pending Red Blood Count Pending Hemoglobin Pending Hematocrit Pending Mean Corpuscular Volume Pending Mean Corpuscular Hemoglobin Pending Mean Corpuscular Hemoglobin Concent Pending Red Cell Distribution Width Pending Platelet Count Pending Mean Platelet Volume Pending Neutrophils (%) (Auto) Pending Lymphocytes (%) (Auto) Pending Monocytes (%) (Auto) Pending Eosinophils (%) (Auto) Pending Basophils (%) (Auto) Pending Sodium Level Pending Potassium Level Pending Chloride Level Pending Carbon Dioxide Level Pending Blood Urea Nitrogen Pending Creatinine Pending Estimat Glomerular Filtration Rate Pending Glucose Level Pending Calcium Level Pending Magnesium Level Pending Total Bilirubin Pending Aspartate Amino Transf (AST/SGOT) Pending Alanine Aminotransferase (ALT/SGPT) Pending Alkaline Phosphatase Pending Total Protein Pending Albumin Pending Globulin Pending Current Medications Medications (Trade) Dose Ordered Sig/Earl Route PRN Reason Start Time Stop Time Status Last Admin Dose Admin Acetaminophen (Tylenol) 650 mg Q4H PRN ORAL For Pain 06/12/17 16:45 07/12/17 16:44 06/12/17 17:56 Acetaminophen (Tylenol) 650 mg Q4H PRN ORAL Temp > 100.5F 06/12/17 16:45 07/12/17 16:44 Albuterol/ Ipratropium (Albuterol/ Ipratropium) 3 ml Q6HRT HHN 06/12/17 19:00 06/17/17 18:59 Ceftriaxone Sodium 1 gm/ Dextrose 55 ml @ 110 mls/hr Q24H IVPB 06/13/17 11:00 06/20/17 10:59 06/14/17 11:43 Mirtazapine (Remeron) 7.5 mg BEDTIME ORAL 06/13/17 21:00 07/13/17 20:59 Sorbitol (Sorbitol) 30 ml Q8H PRN ORAL Constipation 06/14/17 18:00 07/14/17 17:59 SIS ALBA 24, 2017 10:46
[2017-06-15 10:47] LABS: BASOPHILS % (AUTO) 0.7 % (0.0-2.0); EOSINOPHILS % (AUTO) 0.5 % (0.0-3.0); LYMPHOCYTES % (AUTO) 20.4 % (20.0-45.0); MEAN CORPUSCULAR HGB CONC 32.4 G/DL (32.0-36.0); MEAN CORPUSCULAR VOLUME 87 FL (80-99); MEAN PLATELET VOLUME 5.4 FL (6.5-10.1); MONOCYTES % (AUTO) 13.5 % (1.0-10.0); NEUTROPHILS % (AUTO) 64.8 % (45.0-75.0); PLATELET COUNT 261 K/UL (150-450); RED BLOOD COUNT 4.69 M/UL (4.20-5.40); WHITE BLOOD COUNT 7.4 K/UL (4.8-10.8)
[2017-06-15 11:01] LABS: ALANINE AMINOTRANSFERASE 11 U/L (12-78); ALBUMIN/GLOBULIN RATIO 0.6 (1.0-2.7); ANION GAP 6 mmol/L (5-15); ASPARTATE AMINO TRANSFERASE 14 U/L (15-37); CALCIUM 9.6 MG/DL (8.5-10.1); CARBON DIOXIDE 32 MMOL/L (21-32); CHLORIDE 101 MMOL/L (98-107); CREATININE 0.7 MG/DL (0.55-1.30); MAGNESIUM 1.4 MG/DL (1.8-2.4); POTASSIUM 4.3 MMOL/L (3.5-5.1); SODIUM 138 MMOL/L (136-145); TOTAL PROTEIN 7.6 G/DL (6.4-8.2)
[2017-06-15] MEDS: cefTRIAXone 1 GM in D5W 55 ML IVPB SCH (11:18)
[2017-06-15 11:34] VITALS: BP 122/73
--- NOTE | 2017-06-15 15:15 | History and Physical Report ---
DATE OF ADMISSION: 06/12/2017 NOTE: POOR AUDIO QUALITY HISTORY OF PRESENT ILLNESS: The patient comes in with weakness and failure to thrive and is also very weak history of hypertension. The patient also cannot take care of herself and is going to need a rehab placement at this point and is homeless and unable to take care of herself. PAST MEDICAL HISTORY: Hypertension. PAST SURGICAL HISTORY: . MEDICATIONS: None. SOCIAL HISTORY: Denies history of drug or alcohol abuse. She is homeless. Has history of smoking. FAMILY HISTORY: Noncontributory. REVIEW OF SYSTEMS: HEENT: Denies headaches. RESPIRATORY: Denies shortness of breath. Denies cough. CARDIOVASCULAR: Denies chest pain. GASTROINTESTINAL: Denies any vomiting or diarrhea. EXTREMITIES: Denies pain. NEUROLOGIC: Does have weakness. PHYSICAL EXAMINATION: VITAL SIGNS: Temperature is 98.2 degrees, pulse is 98, blood pressure 116/66. HEENT: PERRLA. NECK: Supple. No lymphadenopathy. CHEST: Clear to auscultation. GASTROINTESTINAL: Soft, nontender, and nondistended. No organomegaly. poor hygiene. EXTREMITIES: Edema 1+ NEUROLOGIC: Reflexes equal on both sides. Has localized and lower extremity weakness. LABORATORY DATA: WBC of 6.3, hemoglobin 12.2, and platelets of 239,000. Sodium 141, potassium 3.6, BUN of 8, and creatinine 0.7. ASSESSMENT AND PLAN: Failure to thrive with lower extremity weakness, unable to take care of herself, we are going to need to have a rehab and placement. I have ordered a PT and OT as well. I have asked , , Dr. Greer, Dr. Thomas, and Dr. Pennington to see the patient for the depression and the above-mentioned diagnoses and treatment. Ellyn Mcleod M.D. DR: PIERRE JOB#: [id number] CC:
--- NOTE | 2017-06-15 15:15 | Consultation ---
DATE OF CONSULTATION: 06/13/2017 NOTE: POOR AUDIO QUALITY HEMATOLOGY/ONCOLOGY CONSULTATION CONSULTING PHYSICIAN: Sixto Thomas M.D. REQUESTING PHYSICIAN: Ellyn Mcleod M.D. REASON FOR CONSULTATION: Failure to thrive. IDENTIFYING DATA: Dear Dr. Mcleod, The patient is a pleasant 82-year-old female with past medical history, which is significant for depression as well as weakness, brought in to the hospital due to her weakness, also has a history of urinary tract infection, has been on Remeron. GI service was consulted, Dr. Mcleod. On evaluation in the ER, noted to be weak, complains of right-sided flank pain. Currently, no nausea, vomiting, or diarrhea noted. Hematology service was consulted given failure to thrive and of 1.77. PAST MEDICAL HISTORY: SOCIAL HISTORY: multiple IV drug use. FAMILY HISTORY: Noncontributory. REVIEW OF SYSTEMS: Unable to obtain. PHYSICAL EXAMINATION: GENERAL: No acute distress. Confused. VITAL SIGNS: Reviewed. PULMONARY: . CARDIOVASCULAR: Irregular rate. Irregular rhythm. GASTROINTESTINAL: Abdomen is soft, nontender, and nondistended. Complains of right-sided flank pain. EXTREMITIES: No cyanosis, clubbing, or edema. LABORATORY AND DIAGNOSTIC DATA: WBC 6.3, hemoglobin 12, hematocrit 37, and platelet count 243,000. INR of 1.1. BUN and creatinine of ASSESSMENT AND RECOMMENDATIONS: 1. Failure to thrive. Obtain tumor markers. urinary tract infection. We will continue to closely monitor as well. Continue Remeron for depression. The patient also has anxiety component. 2. Right flank pain. CAT scan of the abdomen was reviewed by GI service. Continue to closely monitor. 3. Anemia, is mild in nature. Continue to monitor. does not require any significant workup. 4. Urinary tract infection, is on antibiotics. I appreciate the consultation. Sixto Thomas M.D. DR: DANIEL JOB#: [id number] CC:
[2017-06-15 15:44] VITALS: BP 126/67
[2017-06-15 20:00] VITALS: BP 127/80
--- NOTE | 2017-06-15 20:32 | General Progress Note ---
Assessment/Plan Problem List: (1) Shortness of breath ICD Codes: R06.02 - Shortness of breath SNOMED: 367539503 (2) Generalized weakness ICD Codes: R53.1 - Weakness SNOMED: 86074289 (3) UTI (urinary tract infection) ICD Codes: N39.0 - UTI (urinary tract infection) SNOMED: 40530177 Status: progressing Assessment/Plan dc planning weakness of le unable to care for herself needs snf placement uti Subjective ROS Limited/Unobtainable: Yes Allergies: Coded Allergies: No Known Allergies (Unverified , 06/12/17) Objective Last 24 Hour Vital Signs Date Time Temp Pulse Resp B/P (MAP) Pulse Ox O2 Delivery O2 Flow Rate FiO2 06/15/17 20:00 99.9 86 16 127/80 95 Room Air 06/15/17 19:51 Room Air 06/15/17 19:50 Room Air 06/15/17 19:50 76 18 Room Air 06/15/17 16:00 87 06/15/17 15:44 97.1 75 18 126/67 95 06/15/17 13:18 79 18 Room Air 06/15/17 12:00 92 06/15/17 11:34 98.4 79 18 122/73 97 Room Air 06/15/17 08:09 98.7 89 18 133/79 96 Room Air 06/15/17 08:01 84 16 100 Room Air 06/15/17 08:00 90 06/15/17 08:00 84 16 98 Room Air 06/15/17 04:00 99.0 88 19 135/74 100 Room Air 06/15/17 04:00 85 06/15/17 01:57 Room Air 06/15/17 01:57 Room Air 06/15/17 00:00 99.1 83 18 127/85 96 Room Air 06/15/17 00:00 87 06/14/17 21:51 101.5 Intake and Output 06/15/17 06/16/17 19:00 07:00 Intake Total 960 ml Balance 960 ml Intake Oral 960 ml # Voids 4 # Bowel Movements 1 Laboratory Tests 06/15/17 10:25: White Blood Count 7.4, Red Blood Count 4.69, Hemoglobin 13.2, Hematocrit 40.6, Mean Corpuscular Volume 87, Mean Corpuscular Hemoglobin 28.0, Mean Corpuscular Hemoglobin Concent 32.4, Red Cell Distribution Width 12.0, Platelet Count 261, Mean Platelet Volume 5.4L, Neutrophils (%) (Auto) 64.8, Lymphocytes (%) (Auto) 20.4, Monocytes (%) (Auto) 13.5H, Eosinophils (%) (Auto) 0.5, Basophils (%) ( Auto) 0.7, Sodium Level 138, Potassium Level 4.3, Chloride Level 101, Carbon Dioxide Level 32, Anion Gap 6, Blood Urea Nitrogen 8, Creatinine 0.7, Estimat Glomerular Filtration Rate , Glucose Level 93, Calcium Level 9.6, Magnesium Level 1.4L, Total Bilirubin 0.7, Aspartate Amino Transf (AST/SGOT) 14L, Alanine Aminotransferase (ALT/SGPT) 11L, Alkaline Phosphatase 70, Total Protein 7.6, Albumin 2.9L, Globulin 4.7, Albumin/Globulin Ratio 0.6L Height (Feet): 5 Height (Inches): 4.00 Weight (Pounds): 150 Cardiovascular: normal rate Abdomen: soft, no organomegaly Ellyn Mcleod MD Jun 15, 2017 20:32
[2017-06-16] VITALS: BP 114/60
[2017-06-16] MEDS: Albuterol/Ipratropium 3ml neb HHN SCH ×4 (01:00→19:00)
[2017-06-16 04:59] VITALS: BP 115/53
[2017-06-16 08:00] VITALS: BP 123/70
[2017-06-16] MEDS ORDERED: Sorbitol Solution UD 30ml ORAL PRN (11:30)
[2017-06-16 11:52] VITALS: BP 126/75
[2017-06-16] MEDS: Lidocaine 1% MPF 10mg/ml 5ml IM SCH (12:59)
--- NOTE | 2017-06-16 14:36 | General Progress Note ---
Assessment/Plan Assessment/Plan ASSESSMENT AND RECOMMENDATIONS: 1. Failure to thrive. Obtain tumor markers. 2. E. coli UTI. Continue abx per ID. 3. Anemia,mild. does not require any significant workup. Subjective Neurologic/Psychiatric: Reports: anxiety, emotional problems Allergies: Coded Allergies: No Known Allergies (Unverified , 06/12/17) All Systems: reviewed and negative except above Subjective refusing meds Objective Last 24 Hour Vital Signs Date Time Temp Pulse Resp B/P (MAP) Pulse Ox O2 Delivery O2 Flow Rate FiO2 06/16/17 13:13 Room Air 06/16/17 13:12 Room Air 06/16/17 11:52 98.1 83 18 126/75 97 Room Air 06/16/17 08:00 98.0 75 21 123/70 97 Room Air 06/16/17 07:57 Room Air 06/16/17 07:57 Room Air 06/16/17 07:53 78 18 Room Air 06/16/17 04:59 98.2 78 18 115/53 99 Room Air 06/16/17 04:00 77 06/16/17 01:15 Room Air 06/16/17 01:15 Room Air 06/16/17 00:01 98.1 06/16/17 00:00 79 06/16/17 00:00 94.8 78 18 114/60 94 Room Air 06/15/17 20:15 99.1 06/15/17 20:00 79 06/15/17 20:00 99.9 86 16 127/80 95 Room Air 21 06/15/17 19:51 Room Air 06/15/17 19:50 Room Air 06/15/17 19:50 76 18 Room Air 06/15/17 16:00 87 06/15/17 15:44 97.1 75 18 126/67 95 Intake and Output 06/16/17 06/17/17 19:00 07:00 Intake Total 480 ml Balance 480 ml Intake Oral 480 ml Height (Feet): 5 Height (Inches): 4.00 Weight (Pounds): 150 General Appearance: no apparent distress EENT: normal ENT inspection Neck: normal alignment Abdomen: normal bowel sounds Edema: trace edema Neurologic: sports marketing internship II-XII grossly normal Sixto Thomas Jun 16, 2017 14:36
[2017-06-16 15:58] VITALS: BP 131/64
[2017-06-16 20:00] VITALS: BP 117/70
--- NOTE | 2017-06-16 22:55 | General Progress Note ---
Assessment/Plan Problem List: (1) Shortness of breath ICD Codes: R06.02 - Shortness of breath SNOMED: 453868478 (2) Generalized weakness ICD Codes: R53.1 - Weakness SNOMED: 88857033 (3) UTI (urinary tract infection) ICD Codes: N39.0 - UTI (urinary tract infection) SNOMED: 17456464 Status: progressing Assessment/Plan afebrile uti is improving abx per id unable to care for herself needs snf placement Subjective ROS Limited/Unobtainable: Yes Allergies: Coded Allergies: No Known Allergies (Unverified , 06/12/17) Objective Last 24 Hour Vital Signs Date Time Temp Pulse Resp B/P (MAP) Pulse Ox O2 Delivery O2 Flow Rate FiO2 06/16/17 20:00 96.9 70 20 117/70 100 Room Air 06/16/17 15:58 99.9 87 18 131/64 99 Room Air 06/16/17 13:13 Room Air 06/16/17 13:12 Room Air 06/16/17 11:52 98.1 83 18 126/75 97 Room Air 06/16/17 08:00 98.0 75 21 123/70 97 Room Air 06/16/17 07:57 Room Air 06/16/17 07:57 Room Air 06/16/17 07:53 78 18 Room Air 06/16/17 04:59 98.2 78 18 115/53 99 Room Air 06/16/17 04:00 77 06/16/17 01:15 Room Air 06/16/17 01:15 Room Air 06/16/17 00:01 98.1 06/16/17 00:00 79 06/16/17 00:00 94.8 78 18 114/60 94 Room Air Intake and Output 06/16/17 06/17/17 19:00 07:00 Intake Total 720 ml Balance 720 ml Intake Oral 720 ml # Voids 2 Laboratory Tests 06/16/17 17:00: Alpha Fetoprotein [Pending], CA 15-3 Antigen [Pending], CA 125 Antigen [Pending] Height (Feet): 5 Height (Inches): 4.00 Weight (Pounds): 150 EENT: PERRL/EOMI Respiratory/Chest: lungs clear Ellyn Mcleod MD Jun 16, 2017 22:55
[2017-06-17] VITALS: BP 133/80
[2017-06-17] MEDS: Albuterol/Ipratropium 3ml neb HHN SCH ×3 (01:00→13:00)
[2017-06-17 04:26] VITALS: BP 116/69
[2017-06-17 08:00] VITALS: BP 142/94
--- NOTE | 2017-06-17 09:11 | Infectious Diseases Prog Note ---
Assessment/Plan Assessment/Plan A: E. coli UTI Fever resolved Abdominal pain Homeless Depression P: Continue Rocephin X2 days declined CT scan of abdomen & pelvis Noncompliant with medications Subjective ROS Limited/Unobtainable: No Constitutional: Reports: no symptoms Respiratory: Reports: no symptoms Cardiovascular: Reports: no symptoms Gastrointestinal/Abdominal: Reports: no symptoms Genitourinary: Reports: no symptoms Allergies: Coded Allergies: No Known Allergies (Unverified , 06/12/17) Objective Vital Signs Last 24 Hour Vital Signs Date Time Temp Pulse Resp B/P (MAP) Pulse Ox O2 Delivery O2 Flow Rate FiO2 06/17/17 08:12 Room Air 06/17/17 08:12 Room Air 06/17/17 08:11 80 16 Room Air 06/17/17 08:00 98.7 83 19 142/94 100 Room Air 06/17/17 04:26 98.4 75 19 116/69 97 Room Air 06/17/17 01:22 Room Air 06/17/17 01:22 Room Air 06/17/17 00:00 98.8 81 18 133/80 97 Room Air 06/16/17 20:13 91 16 Room Air 06/16/17 20:13 Room Air 06/16/17 20:00 96.9 70 20 117/70 100 Room Air 06/16/17 15:58 99.9 87 18 131/64 99 Room Air 06/16/17 13:13 Room Air 06/16/17 13:12 Room Air 06/16/17 11:52 98.1 83 18 126/75 97 Room Air Height (Feet): 5 Height (Inches): 4.00 Weight (Pounds): 150 General Appearance: no acute distress HEENT: mucous membranes moist Respiratory/Chest: lungs clear Cardiovascular: normal rate Abdomen: soft, non tender Extremities: no edema Neurologic/Psychiatric: alert, responsive Laboratory Tests Test 06/16/17 17:00 Alpha Fetoprotein Pending CA 15-3 Antigen Pending CA 125 Antigen Pending Current Medications Medications (Trade) Dose Ordered Sig/Earl Route PRN Reason Start Time Stop Time Status Last Admin Dose Admin Acetaminophen (Tylenol) 650 mg Q4H PRN ORAL For Pain 06/16/17 11:30 07/12/17 11:29 Acetaminophen (Tylenol) 650 mg Q4H PRN ORAL Temp > 100.5F 06/16/17 11:30 07/12/17 11:29 Albuterol/ Ipratropium (Albuterol/ Ipratropium) 3 ml Q6HRT HHN 06/16/17 13:00 06/17/17 18:59 Ceftriaxone Sodium (Rocephin) 1 gm Q24H IM 06/16/17 13:00 06/23/17 12:59 Lidocaine (Xylocaine 1% MPF 5ml) 3.6 ml Q24H IM 06/16/17 13:00 07/16/17 12:59 Mirtazapine (Remeron) 7.5 mg BEDTIME ORAL 06/16/17 21:00 07/13/17 20:59 Sorbitol (Sorbitol) 30 ml Q8H PRN ORAL Constipation 06/16/17 11:30 07/14/17 11:29 SIS ALBA Jun 17, 2017 09:11
--- NOTE | 2017-06-17 11:15 | Consultation ---
Consult Note Consult Note asked to eval for low mag admitted for UTI and FTT examined- data reviewed Assessment/Plan UTI- FTT- Proteinuria Low Mag Low Alb Mag supp. check labs per orders RON BLACK Jun 17, 2017 11:15
[2017-06-17 11:51] LABS: BASOPHILS % (AUTO) 0.9 % (0.0-2.0); EOSINOPHILS % (AUTO) 1.1 % (0.0-3.0); LYMPHOCYTES % (AUTO) 27.6 % (20.0-45.0); MEAN CORPUSCULAR HEMOGLOBIN 27.1 PG (27.0-31.0); MEAN CORPUSCULAR HGB CONC 31.4 G/DL (32.0-36.0); MEAN CORPUSCULAR VOLUME 87 FL (80-99); MEAN PLATELET VOLUME 5.3 FL (6.5-10.1); MONOCYTES % (AUTO) 11.3 % (1.0-10.0); PLATELET COUNT 325 K/UL (150-450); RED BLOOD COUNT 4.78 M/UL (4.20-5.40); WHITE BLOOD COUNT 5.6 K/UL (4.8-10.8)
[2017-06-17 12:00] VITALS: BP 145/77
[2017-06-17 12:17] LABS: ALANINE AMINOTRANSFERASE 17 U/L (12-78); ALBUMIN/GLOBULIN RATIO 0.6 (1.0-2.7); ANION GAP 6 mmol/L (5-15); ASPARTATE AMINO TRANSFERASE 19 U/L (15-37); CALCIUM 9.8 MG/DL (8.5-10.1); CARBON DIOXIDE 30 MMOL/L (21-32); CHLORIDE 100 MMOL/L (98-107); CREATININE 0.7 MG/DL (0.55-1.30); CRP QUANT 5.4 mg/dL (0.00-0.90); MAGNESIUM 1.6 MG/DL (1.8-2.4); PHOSPHORUS 2.8 MG/DL (2.5-4.9); POTASSIUM 3.9 MMOL/L (3.5-5.1); SODIUM 136 MMOL/L (136-145); THYROID STIMULATING HORMONE 1.291 uiU/mL (0.358-3.740); TOTAL PROTEIN 7.8 G/DL (6.4-8.2)
[2017-06-17 12:35] LABS: FOLIC ACID 16.1 NG/ML (3.1-17.5)
[2017-06-17] MEDS: Lidocaine 1% MPF 10mg/ml 5ml IM SCH (13:00)
[2017-06-17] MEDS ORDERED: Albuterol/Ipratropium 3ml neb HHN PRN (15:15)
[2017-06-17 16:00] VITALS: BP 137/67
[2017-06-17 20:00] VITALS: BP 128/70
--- NOTE | 2017-06-17 20:55 | General Progress Note ---
Assessment/Plan Assessment/Plan ASSESSMENT AND RECOMMENDATIONS: 1. Failure to thrive. Obtain tumor markers, have been ordered. 2. E. coli UTI. Continue abx per ID. 3. Anemia,mild. does not require any significant workup. Subjective Neurologic/Psychiatric: Reports: emotional problems Allergies: Coded Allergies: No Known Allergies (Unverified , 06/12/17) All Systems: reviewed and negative except above Subjective CT A/P refused Objective Last 24 Hour Vital Signs Date Time Temp Pulse Resp B/P (MAP) Pulse Ox O2 Delivery O2 Flow Rate FiO2 06/17/17 20:00 98.8 71 18 128/70 91 Room Air 06/17/17 16:00 98.9 79 20 137/67 98 Room Air 06/17/17 13:22 Room Air 06/17/17 13:21 Room Air 06/17/17 12:00 97.5 80 18 145/77 98 Room Air 06/17/17 08:12 Room Air 06/17/17 08:12 Room Air 06/17/17 08:11 80 16 Room Air 21 06/17/17 08:00 98.7 83 19 142/94 100 Room Air 06/17/17 04:26 98.4 75 19 116/69 97 Room Air 06/17/17 01:22 Room Air 06/17/17 01:22 Room Air 06/17/17 00:00 98.8 81 18 133/80 97 Room Air Intake and Output 06/17/17 06/18/17 19:00 07:00 Intake Total 480 ml Balance 480 ml Intake Oral 480 ml # Voids 4 Laboratory Tests 06/17/17 11:35: White Blood Count 5.6, Red Blood Count 4.78, Hemoglobin 13.0, Hematocrit 41.4, Mean Corpuscular Volume 87, Mean Corpuscular Hemoglobin 27.1, Mean Corpuscular Hemoglobin Concent 31.4L, Red Cell Distribution Width 12.0, Platelet Count 325, Mean Platelet Volume 5.3L, Neutrophils (%) (Auto) 59.0, Lymphocytes (%) (Auto) 27.6, Monocytes (%) (Auto) 11.3H, Eosinophils (%) (Auto) 1.1, Basophils (%) ( Auto) 0.9, Sodium Level 136, Potassium Level 3.9, Chloride Level 100, Carbon Dioxide Level 30, Anion Gap 6, Blood Urea Nitrogen 8, Creatinine 0.7, Estimat Glomerular Filtration Rate , Glucose Level 90, Calcium Level 9.8, Phosphorus Level 2.8, Magnesium Level 1.6L, Total Bilirubin 0.5, Aspartate Amino Transf ( AST/SGOT) 19, Alanine Aminotransferase (ALT/SGPT) 17, Alkaline Phosphatase 75, C -Reactive Protein, Quantitative 5.4H, Pro-B-Type Natriuretic Peptide 151H, Total Protein 7.8, Albumin 2.9L, Globulin 4.9, Albumin/Globulin Ratio 0.6L, Vitamin B12 Level 530, Folate 16.1, Thyroid Stimulating Hormone (TSH) 1.291 Height (Feet): 5 Height (Inches): 4.00 Weight (Pounds): 150 General Appearance: no apparent distress EENT: normal ENT inspection Neck: normal alignment Edema: trace edema Skin: normal pigmentation Sixto Thomas Jun 17, 2017 20:55
--- NOTE | 2017-06-17 21:20 | General Progress Note ---
Assessment/Plan Problem List: (1) Shortness of breath ICD Codes: R06.02 - Shortness of breath SNOMED: 981494846 (2) Generalized weakness ICD Codes: R53.1 - Weakness SNOMED: 76035644 (3) UTI (urinary tract infection) ICD Codes: N39.0 - UTI (urinary tract infection) SNOMED: 37663549 Status: progressing Assessment/Plan afebrile' unable to take care of herself will dc in am to snf abx per id Subjective ROS Limited/Unobtainable: Yes Allergies: Coded Allergies: No Known Allergies (Unverified , 06/12/17) Objective Last 24 Hour Vital Signs Date Time Temp Pulse Resp B/P (MAP) Pulse Ox O2 Delivery O2 Flow Rate FiO2 06/17/17 20:00 98.8 71 18 128/70 91 Room Air 06/17/17 16:00 98.9 79 20 137/67 98 Room Air 06/17/17 13:22 Room Air 06/17/17 13:21 Room Air 06/17/17 12:00 97.5 80 18 145/77 98 Room Air 06/17/17 08:12 Room Air 06/17/17 08:12 Room Air 06/17/17 08:11 80 16 Room Air 21 06/17/17 08:00 98.7 83 19 142/94 100 Room Air 06/17/17 04:26 98.4 75 19 116/69 97 Room Air 06/17/17 01:22 Room Air 06/17/17 01:22 Room Air 06/17/17 00:00 98.8 81 18 133/80 97 Room Air Intake and Output 06/17/17 06/18/17 19:00 07:00 Intake Total 480 ml Balance 480 ml Intake Oral 480 ml # Voids 4 Laboratory Tests 06/17/17 11:35: White Blood Count 5.6, Red Blood Count 4.78, Hemoglobin 13.0, Hematocrit 41.4, Mean Corpuscular Volume 87, Mean Corpuscular Hemoglobin 27.1, Mean Corpuscular Hemoglobin Concent 31.4L, Red Cell Distribution Width 12.0, Platelet Count 325, Mean Platelet Volume 5.3L, Neutrophils (%) (Auto) 59.0, Lymphocytes (%) (Auto) 27.6, Monocytes (%) (Auto) 11.3H, Eosinophils (%) (Auto) 1.1, Basophils (%) ( Auto) 0.9, Sodium Level 136, Potassium Level 3.9, Chloride Level 100, Carbon Dioxide Level 30, Anion Gap 6, Blood Urea Nitrogen 8, Creatinine 0.7, Estimat Glomerular Filtration Rate , Glucose Level 90, Calcium Level 9.8, Phosphorus Level 2.8, Magnesium Level 1.6L, Total Bilirubin 0.5, Aspartate Amino Transf ( AST/SGOT) 19, Alanine Aminotransferase (ALT/SGPT) 17, Alkaline Phosphatase 75, C -Reactive Protein, Quantitative 5.4H, Pro-B-Type Natriuretic Peptide 151H, Total Protein 7.8, Albumin 2.9L, Globulin 4.9, Albumin/Globulin Ratio 0.6L, Vitamin B12 Level 530, Folate 16.1, Thyroid Stimulating Hormone (TSH) 1.291 Height (Feet): 5 Height (Inches): 4.00 Weight (Pounds): 150 Ellyn Mcleod MD Jun 17, 2017 21:20
[2017-06-18] VITALS: BP 117/73
[2017-06-18 04:00] VITALS: BP 129/81
--- NOTE | 2017-06-18 10:14 | Diagnostic Imaging Report ---
APPROVED REPORT CPT Code: 48782 Present Symptoms Lower Extremity Pain: Bilateral BILATERAL: Imaging reveals a patent deep venous system bilaterally. There is no evidence of thrombus within the femoral, popliteal or tibial segments. The greater saphenous veins are also within normal limits. Doppler indicates normal spontaneous flow within these segments.
--- NOTE | 2017-06-18 11:02 | Infectious Diseases Prog Note ---
Assessment/Plan Assessment/Plan A: E. coli UTI Fever resolved Abdominal pain Homeless Depression P: discontinue Rocephin , patient refusing it declined CT scan of abdomen & pelvis Noncompliant with medications Subjective ROS Limited/Unobtainable: Yes Allergies: Coded Allergies: No Known Allergies (Unverified , 06/12/17) Objective Vital Signs Last 24 Hour Vital Signs Date Time Temp Pulse Resp B/P (MAP) Pulse Ox O2 Delivery O2 Flow Rate FiO2 06/18/17 08:03 78 18 Room Air 21 06/18/17 08:00 Room Air 06/18/17 04:00 98.0 74 18 129/81 99 Room Air 06/18/17 00:00 98.3 76 18 117/73 96 06/17/17 21:21 83 16 Room Air 21 06/17/17 20:00 98.8 71 18 128/70 91 Room Air 06/17/17 16:00 98.9 79 20 137/67 98 Room Air 06/17/17 13:22 Room Air 06/17/17 13:21 Room Air 06/17/17 12:00 97.5 80 18 145/77 98 Room Air Height (Feet): 5 Height (Inches): 4.00 Weight (Pounds): 150 General Appearance: no acute distress HEENT: mucous membranes moist Respiratory/Chest: lungs clear Cardiovascular: normal rate Abdomen: soft, non tender Extremities: no edema Neurologic/Psychiatric: other - sleeping Laboratory Tests Test 06/17/17 11:35 White Blood Count 5.6 K/UL (4.8-10.8) Red Blood Count 4.78 M/UL (4.20-5.40) Hemoglobin 13.0 G/DL (12.0-16.0) Hematocrit 41.4 % (37.0-47.0) Mean Corpuscular Volume 87 FL (80-99) Mean Corpuscular Hemoglobin 27.1 PG (27.0-31.0) Mean Corpuscular Hemoglobin Concent 31.4 G/DL (32.0-36.0) L Red Cell Distribution Width 12.0 % (11.6-14.8) Platelet Count 325 K/UL (150-450) Mean Platelet Volume 5.3 FL (6.5-10.1) L Neutrophils (%) (Auto) 59.0 % (45.0-75.0) Lymphocytes (%) (Auto) 27.6 % (20.0-45.0) Monocytes (%) (Auto) 11.3 % (1.0-10.0) H Eosinophils (%) (Auto) 1.1 % (0.0-3.0) Basophils (%) (Auto) 0.9 % (0.0-2.0) Sodium Level 136 MMOL/L (136-145) Potassium Level 3.9 MMOL/L (3.5-5.1) Chloride Level 100 MMOL/L (98-107) Carbon Dioxide Level 30 MMOL/L (21-32) Anion Gap 6 mmol/L (5-15) Blood Urea Nitrogen 8 mg/dL (7-18) Creatinine 0.7 MG/DL (0.55-1.30) Estimat Glomerular Filtration Rate mL/min (>60) Glucose Level 90 MG/DL (74-106) Calcium Level 9.8 MG/DL (8.5-10.1) Phosphorus Level 2.8 MG/DL (2.5-4.9) Magnesium Level 1.6 MG/DL (1.8-2.4) L Total Bilirubin 0.5 MG/DL (0.2-1.0) Aspartate Amino Transf (AST/SGOT) 19 U/L (15-37) Alanine Aminotransferase (ALT/SGPT) 17 U/L (12-78) Alkaline Phosphatase 75 U/L (46-116) C-Reactive Protein, Quantitative 5.4 mg/dL (0.00-0.90) H Pro-B-Type Natriuretic Peptide 151 pg/mL (0-125) H Total Protein 7.8 G/DL (6.4-8.2) Albumin 2.9 G/DL (3.4-5.0) L Globulin 4.9 g/dL Albumin/Globulin Ratio 0.6 (1.0-2.7) L Vitamin B12 Level 530 PG/ML (193-986) Folate 16.1 NG/ML (3.1-17.5) Thyroid Stimulating Hormone (TSH) 1.291 uiU/mL (0.358-3.740) Current Medications Medications (Trade) Dose Ordered Sig/Earl Route PRN Reason Start Time Stop Time Status Last Admin Dose Admin Acetaminophen (Tylenol) 650 mg Q4H PRN ORAL For Pain 06/16/17 11:30 07/12/17 11:29 Acetaminophen (Tylenol) 650 mg Q4H PRN ORAL Temp > 100.5F 06/16/17 11:30 07/12/17 11:29 Albuterol/ Ipratropium (Albuterol/ Ipratropium) 3 ml Q6H PRN HHN Shortness of Breath 06/17/17 15:15 06/22/17 15:14 Ceftriaxone Sodium (Rocephin) 1 gm Q24H IM 06/16/17 13:00 06/23/17 12:59 Lidocaine (Xylocaine 1% MPF 5ml) 3.6 ml Q24H IM 06/16/17 13:00 07/16/17 12:59 Magnesium Sulfate 100 ml @ 100 mls/hr Q1H IVPB 06/18/17 10:45 06/18/17 12:44 Mirtazapine (Remeron) 7.5 mg BEDTIME ORAL 06/16/17 21:00 07/13/17 20:59 Sorbitol (Sorbitol) 30 ml Q8H PRN ORAL Constipation 06/16/17 11:30 07/14/17 11:29 SIS ALBA Jun 18, 2017 11:02
--- NOTE | 2017-06-18 11:13 | General Progress Note ---
Assessment/Plan Status: stable Assessment/Plan anxiety mdd the pt lacks capacity to make decisions, therefore if thats necessary administer meds without consent however document the necessity of getting meds remron 7.5 qhs Subjective Date patient seen: Jun 18, 2017 Neurologic/Psychiatric: Reports: anxiety, depressed Allergies: Coded Allergies: No Known Allergies (Unverified , 06/12/17) Subjective the pt does not have capacity to make decisions the pt is refusing meds and care. Objective Last 24 Hour Vital Signs Date Time Temp Pulse Resp B/P (MAP) Pulse Ox O2 Delivery O2 Flow Rate FiO2 06/18/17 08:03 78 18 Room Air 21 06/18/17 08:00 Room Air 06/18/17 04:00 98.0 74 18 129/81 99 Room Air 06/18/17 00:00 98.3 76 18 117/73 96 06/17/17 21:21 83 16 Room Air 21 06/17/17 20:00 98.8 71 18 128/70 91 Room Air 06/17/17 16:00 98.9 79 20 137/67 98 Room Air 06/17/17 13:22 Room Air 06/17/17 13:21 Room Air 06/17/17 12:00 97.5 80 18 145/77 98 Room Air Laboratory Tests 06/17/17 11:35: White Blood Count 5.6, Red Blood Count 4.78, Hemoglobin 13.0, Hematocrit 41.4, Mean Corpuscular Volume 87, Mean Corpuscular Hemoglobin 27.1, Mean Corpuscular Hemoglobin Concent 31.4L, Red Cell Distribution Width 12.0, Platelet Count 325, Mean Platelet Volume 5.3L, Neutrophils (%) (Auto) 59.0, Lymphocytes (%) (Auto) 27.6, Monocytes (%) (Auto) 11.3H, Eosinophils (%) (Auto) 1.1, Basophils (%) ( Auto) 0.9, Sodium Level 136, Potassium Level 3.9, Chloride Level 100, Carbon Dioxide Level 30, Anion Gap 6, Blood Urea Nitrogen 8, Creatinine 0.7, Estimat Glomerular Filtration Rate , Glucose Level 90, Calcium Level 9.8, Phosphorus Level 2.8, Magnesium Level 1.6L, Total Bilirubin 0.5, Aspartate Amino Transf ( AST/SGOT) 19, Alanine Aminotransferase (ALT/SGPT) 17, Alkaline Phosphatase 75, C -Reactive Protein, Quantitative 5.4H, Pro-B-Type Natriuretic Peptide 151H, Total Protein 7.8, Albumin 2.9L, Globulin 4.9, Albumin/Globulin Ratio 0.6L, Vitamin B12 Level 530, Folate 16.1, Thyroid Stimulating Hormone (TSH) 1.291 Height (Feet): 5 Height (Inches): 4.00 Weight (Pounds): 150 General Appearance: no apparent distress, alert, confused Neurologic: alert, responsive, disoriented, depressed affect Omaira Pennington M.D. Jun 18, 2017 11:13
--- NOTE | 2017-06-18 11:22 | Nephrology Progress Note ---
Assessment/Plan Problem List: (1) FTT (failure to thrive) in adult (2) UTI (urinary tract infection) (3) Hypoalbuminemia due to protein-calorie malnutrition Assessment UTI- FTT- Proteinuria Low Mag Low Alb Plan Mag supp. check labs per orders Subjective ROS Limited/Unobtainable: No Constitutional: Reports: malaise Objective Objective Last 24 Hour Vital Signs Date Time Temp Pulse Resp B/P (MAP) Pulse Ox O2 Delivery O2 Flow Rate FiO2 06/18/17 08:03 78 18 Room Air 21 06/18/17 08:00 Room Air 06/18/17 04:00 98.0 74 18 129/81 99 Room Air 06/18/17 00:00 98.3 76 18 117/73 96 06/17/17 21:21 83 16 Room Air 21 06/17/17 20:00 98.8 71 18 128/70 91 Room Air 06/17/17 16:00 98.9 79 20 137/67 98 Room Air 06/17/17 13:22 Room Air 06/17/17 13:21 Room Air 06/17/17 12:00 97.5 80 18 145/77 98 Room Air Laboratory Tests 06/17/17 11:35: White Blood Count 5.6, Red Blood Count 4.78, Hemoglobin 13.0, Hematocrit 41.4, Mean Corpuscular Volume 87, Mean Corpuscular Hemoglobin 27.1, Mean Corpuscular Hemoglobin Concent 31.4L, Red Cell Distribution Width 12.0, Platelet Count 325, Mean Platelet Volume 5.3L, Neutrophils (%) (Auto) 59.0, Lymphocytes (%) (Auto) 27.6, Monocytes (%) (Auto) 11.3H, Eosinophils (%) (Auto) 1.1, Basophils (%) ( Auto) 0.9, Sodium Level 136, Potassium Level 3.9, Chloride Level 100, Carbon Dioxide Level 30, Anion Gap 6, Blood Urea Nitrogen 8, Creatinine 0.7, Estimat Glomerular Filtration Rate , Glucose Level 90, Calcium Level 9.8, Phosphorus Level 2.8, Magnesium Level 1.6L, Total Bilirubin 0.5, Aspartate Amino Transf ( AST/SGOT) 19, Alanine Aminotransferase (ALT/SGPT) 17, Alkaline Phosphatase 75, C -Reactive Protein, Quantitative 5.4H, Pro-B-Type Natriuretic Peptide 151H, Total Protein 7.8, Albumin 2.9L, Globulin 4.9, Albumin/Globulin Ratio 0.6L, Vitamin B12 Level 530, Folate 16.1, Thyroid Stimulating Hormone (TSH) 1.291 Height (Feet): 5 Height (Inches): 4.00 Weight (Pounds): 150 General Appearance: no apparent distress Objective no change in PE RON BLACK Jun 18, 2017 11:22
[2017-06-18 12:00] VITALS: BP 134/74
[2017-06-18] MEDS ORDERED: Haloperidol Decanoate 50mg Inj IM ONE (12:00)
[2017-06-18] MEDS: Magnesium Oxide 400mg tab ORAL SCH ×2 (13:00→18:00)
[2017-06-18 16:00] VITALS: BP 139/73
--- NOTE | 2017-06-18 18:45 | General Progress Note ---
Assessment/Plan Assessment/Plan ASSESSMENT AND RECOMMENDATIONS: 1. Failure to thrive. Obtain tumor markers, have been ordered, still pending 2. E. coli UTI. Continue abx per ID. 3. Anemia,mild. does not require any significant workup. Subjective Constitutional: Reports: malaise, weakness Allergies: Coded Allergies: No Known Allergies (Unverified , 06/12/17) All Systems: reviewed and negative except above Subjective CT A/P refused Objective Last 24 Hour Vital Signs Date Time Temp Pulse Resp B/P (MAP) Pulse Ox O2 Delivery O2 Flow Rate FiO2 06/18/17 16:00 99.5 78 18 139/73 96 06/18/17 12:00 98.4 75 18 134/74 97 06/18/17 12:00 Room Air 06/18/17 08:03 78 18 Room Air 21 06/18/17 08:00 Room Air 06/18/17 04:00 98.0 74 18 129/81 99 Room Air 06/18/17 00:00 98.3 76 18 117/73 96 06/17/17 21:21 83 16 Room Air 21 06/17/17 20:00 98.8 71 18 128/70 91 Room Air Intake and Output 06/18/17 06/19/17 19:00 07:00 Intake Total 660 ml Balance 660 ml Intake Oral 560 ml IV Total 100 ml # Voids 3 Height (Feet): 5 Height (Inches): 4.00 Weight (Pounds): 150 General Appearance: no apparent distress EENT: normal ENT inspection Neck: normal alignment Abdomen: normal bowel sounds Extremities: normal range of motion Neurologic: settlement technician II-XII grossly normal Skin: normal pigmentation Sixto Thomas Jun 18, 2017 18:45
[2017-06-18] MEDS ORDERED: Tubing IV Secondary IV ONE (19:29)
[2017-06-18] MEDS ORDERED: NS 500ML ONE (19:29)
--- NOTE | 2017-06-18 22:07 | General Progress Note ---
Assessment/Plan Assessment/Plan Assessment - (R)LQ and (R) flank pain - resolved - pt declined CT scan - UTI - eating better Recommendations - abx per ID - po as tolerated - agree with placement Subjective Allergies: Coded Allergies: No Known Allergies (Unverified , 06/12/17) Subjective Feels better RLQ pain better eating no vomiting for discharge today Objective Last 24 Hour Vital Signs Date Time Temp Pulse Resp B/P (MAP) Pulse Ox O2 Delivery O2 Flow Rate FiO2 06/18/17 16:00 99.5 78 18 139/73 96 06/18/17 16:00 Room Air 06/18/17 12:00 98.4 75 18 134/74 97 06/18/17 12:00 Room Air 06/18/17 08:03 78 18 Room Air 21 06/18/17 08:00 Room Air 06/18/17 04:00 98.0 74 18 129/81 99 Room Air 06/18/17 00:00 98.3 76 18 117/73 96 Intake and Output 06/18/17 06/19/17 19:00 07:00 Intake Total 660 ml Balance 660 ml Intake Oral 560 ml IV Total 100 ml # Voids 3 Height (Feet): 5 Height (Inches): 4.00 Weight (Pounds): 150 Objective JAMES ELLIOTT Jun 18, 2017 22:07
--- NOTE | 2017-06-18 23:14 | Geriatric Progress Note ---
Assessment/Plan Discussed with: patient Subjective Interval Events 06/17/17 Mood/Memory: Reports: prior hx, anxiety, depressed feelings, emotional problems Geriatric Geriatric Last 24 Hour Vital Signs Date Time Temp Pulse Resp B/P (MAP) Pulse Ox O2 Delivery O2 Flow Rate FiO2 06/18/17 16:00 99.5 78 18 139/73 96 06/18/17 16:00 Room Air 06/18/17 12:00 98.4 75 18 134/74 97 06/18/17 12:00 Room Air 06/18/17 08:03 78 18 Room Air 21 06/18/17 08:00 Room Air 06/18/17 04:00 98.0 74 18 129/81 99 Room Air 06/18/17 00:00 98.3 76 18 117/73 96 Intake and Output 06/18/17 06/19/17 19:00 07:00 Intake Total 660 ml Balance 660 ml Intake Oral 560 ml IV Total 100 ml # Voids 3 Height (Feet): 5 Height (Inches): 4.00 Weight (Pounds): 150 Psychiatric Behavior: uncooperative Orientation: person Affect: appropriate Insight: Omaira Corrales M.D. Jun 18, 2017 23:14
[2017-06-19 10:20] LABS: CA 125 8.3 U/mL (0.0-38.1); CA15-3 20.5 U/mL (0.0-25.0)
--- NOTE | 2017-06-20 09:29 | Discharge Summary ---
Discharge Summary Hospital Course Date of Admission Jun 12, 2017 at 11:05 Date of Discharge Jun 18, 2017 at 19:30 Admitting Diagnosis WEAKNESS,FAILURE TO THRIVE HPI Gloria Ely is a 82 year old female who was admitted on Jun 12, 2017 at 11: 05 for Weakness,Failure To Thrive Hospital Course dc summary #[id number] Discharge Condition Upon Discharge: stable Discharge Disposition Patient was discharged to SNF Discharge Diagnoses: Discharge Instructions Discharge Instructions Special Instructions I have been assigned to complete a D/C Summary on this account. I was not involved in the patient management Svtelana Cole NP (Vanchtein) Jun 20, 2017 09:29
--- NOTE | 2017-06-20 17:26 | Cardiology Report ---
APPROVED REPORT EKG Measurement Heart [id number] Normal sinus rhythm Normal ECG
--- NOTE | 2017-06-21 01:00 | Discharge Summary 2 SIG ---
DATE OF ADMISSION: 06/12/2017 DATE OF DISCHARGE: 06/18/2017 REASON FOR ADMISSION: 82-year-old female, homeless, presented with decreased appetite and generalized weakness. The patient was off of her medication for few weeks. The patient was diagnosed with urinary tract infection and failure to thrive, and was admitted for further management for UTI and failure to thrive. HOSPITAL STAY: The patient admitted. ID consult was requested. The patient started on empiric antibiotics. Urine culture revealed E. coli. The patient status post treatment for UTI. Blood culture were negative. Chest x-ray revealed no acute cardiopulmonary disease. The patient had intermittent fevers which resolved. The patient status post treatment with antibiotics. Upon admission, the patient also complained of right flank pain and right lower quadrant pain. GI consult was requested. Right flank pain was possibly due to the UTI; however, GI ordered CT of the abdomen and pelvis, which the patient declined to do. Pain management was provided. The patient was able to tolerate diet. Pain resolved. The patient was noncompliant with medications and declined CT of the abdomen and pelvis as mentioned above. Psychiatrist had seen and evaluated the patient, diagnosed her with major depressive disorder and anxiety, and started the patient on Remeron. She concluded that the patient lacked capacity to make medical decision. She stated however that medication should be administered with documented necessity for it. Digital X Ray Service Engineer followed the patient for electrolyte abnormality , i.e. hypomagnesemia. Magnesium was replaced and was stable. The patient also noted to have protein in the urine. Due to the failure to thrive, handicapper harness racing/oncologist was consulted. The patient w demonstrated poor oral intake. TSH was within normal limits. Renal parameters were stable. Troponin was negative. Venous duplex of bilateral lower extremities was negative. Tumor markers such as CA 15-3, CA-125, and alpha-fetoprotein were all within normal limits. Nutritional consult was done. The patient started on Ensure supplement twice a day with meals and assistance with meals. The patient was working with physical and occupational therapists. [facility] at [facility]. The [facility] was [facility] to [facility] of care. FINAL DIAGNOSES: 1. Urinary tract infection with Escherichia coli. 2. Proteinuria. 3. Failure to thrive, possibly due to dehydration and malnutrition. 4. Hypomagnesemia, resolved. 5. Major depressive disorder. 6. Anxiety. 7. Homeless. 8. Right flank and right lower quadrant pain, resolved. 9. Noncompliance. DISCHARGE MEDICATIONS: List of medications was sent to admitting facility. DISCHARGE INSTRUCTIONS: The patient was discharged to [facility]. FOLLOWUP: Follow up with medical doctor at the facility. Ellyn Mcleod M.D. I have been assigned to dictate discharge summary on this account and I was not involved in the patient's management. Svetlana HoffmanSt. Luke'S HospitalJennifer N.PBailey DR: LAYNE JOB#: [id number] CC: RADHA
== END 2017-06-18 19:30 | DRG 690 ==
LOC: EDBD 10:18 → EMR 10:35 → 2W 11:05 → EDBEDREQ 13:23 → 2E 06-13 20:55 → 4E 06-16 11:10
DX: N39.0 Urinary tract infection, site not specified (principal); E46 Unspecified protein-calorie malnutrition; E86.0 Dehydration; E83.42 Hypomagnesemia; F32.9 Major depressive disorder, single episode, unspecified; B96.20 Unspecified Escherichia coli [E. coli] as the cause of diseases classified elsewhere; R53.1 Weakness; Z59.0 Homelessness; R06.02 Shortness of breath; R62.7 Adult failure to thrive; I10 Essential (primary) hypertension; F41.9 Anxiety disorder, unspecified; Z91.19 Patient's noncompliance with other medical treatment and regimen; R10.31 Right lower quadrant pain; H91.90 Unspecified hearing loss, unspecified ear; D64.9 Anemia, unspecified
CPT/HCPCS: 36415; 71010; 80053; 81003; 82105; 82550; 82553; 82607; 82746; 83605; 83690; 83735; 83880; 84100; 84443; 84484; 85025; 85610; 85730; 86140; 86300; 86304; 87040; 87081; 87086; 87181; 93005; 93970; 94664; 99285; J7620